=== PATIENT | male | born 1980 | race Caucasian/White ===

== ENCOUNTER 2016-10-29 04:07 | Emergency (ER) | payer OTHER ==
[~2016-10-29 04:07] MED LIST: IBUPROFEN600 MG PO
--- NOTE | 2016-10-29 06:04 | NUR ---
I WAS CALLED IN FOR THIS PT WHO WAS BROUGHT IN UNRESPONSIVE. HIS FRIEND NATHALIE WAS HERE AND SAID SHE HAD BEEN TRYING FOR SEVERAL DAYS TO GET HIM TO SEE DR. SHE WAS VERY EMOTIONAL BUT LISTENED WHEN I SPOKE TO HER. SHE WAS VERY RECEPTIVE TO PRAYER AND RECIEVED SOME VERSES FOR ENCOURAGEMENT -FROM ABOUT DOING ALL THINGS IN [place] AND FROM [place] ABOUT ALL THINGS WORKING TO OUR GOOD. WE TALKED SHE VENTED HER FEELINGS ABOUT TRYING TO GET PT TO SEE LAST WEEK. PT VITALS WERE IMPROVING SHE BECAME MORE CALM. PT WAS BEING PREPARED FOR TRANSPORT SHE BEGAN TO PLAN HER DAY FAR GETTING THINGS READY TO GO TO [place] TO BE WITH HIM. SHE WAS GETTING IN HER CAR SHE SEEMED TO BE CALM I IMAGINE SHE POSSIBLY CAN BE, SHE SEEMS TO BE A VERY HYPERACTIVE PERSON. I PRAY, IN AGREEMENT WITH HER, THAT ALL THINGS WORK FOR HER GOOD SHE CARES FOR HER FRIEND AND THAT PT HAVE A GOOD RECOVERY.
== END 2016-10-29 06:00 | disposition short-term general hospital (02) ==
LOC: ED 04:07
DX: K92.2 Gastrointestinal hemorrhage, unspecified (principal); N17.9 Acute kidney failure, unspecified; K74.60 Unspecified cirrhosis of liver; E83.51 Hypocalcemia; E87.2 Acidosis
CPT/HCPCS: 31720; 36430; 36600; 71010; 80053; 82140; 82803; 85025; 85610; 86850; 86900; 86901; 86920; 86927; 94002; 94760; 94799; 99291; J0610; J0696; J2354; J3430; J7030; P9016